=== PATIENT | female | born 1955 | race Caucasian/White ===

== ENCOUNTER → 2020-03-24 16:14 | Outpatient (CLI) | payer MEDICARE, OTHER, SELFPAY ==
--- NOTE | ~2020-03-24 | XR_ITS ---
XR chest 2V DATE: 03/24/2020 17:00 INDICATION: Persistent cough TECHNIQUE: PA and lateral views COMPARISON: 10/19/2016 two-view chest FINDINGS: Normal heart size. Aortic calcification and mild tortuosity. No hilar or mediastinal enlarg ement. The lungs are hyperinflated, clear of infiltrate or consolidation. No pleural effusion or pulmonary v ascular congestion or pneumothorax. Diffuse osteopenia. Degenerative change of the thoracic spine. Status post cholecystectomy. IMPRESSION: Bilateral hyperinflation suggesting obstructive airways disease No active cardiopulmonary disease Aortic atherosclerosis Diffuse osteopenia. Degenerative change of the thoracic spine. Reviewed, dictated and finalized at location A.
== END ==
PROVIDERS: PCP Family Medicine Adolescent Medicine; Visit Provider Family Medicine Adolescent Medicine
DX: R05 Cough (principal); R91.8 Other nonspecific abnormal finding of lung field; I70.0 Atherosclerosis of aorta; M85.88 Other specified disorders of bone density and structure, other site
CPT/HCPCS: 71046

== ENCOUNTER 2021-09-08 08:25 | Outpatient (CLI) | payer OTHER, SELFPAY ==
[2021-09-08 09:11] LABS: Hemoglobin A1C 6.7 % (<5.7)
[2021-09-08 09:34] LABS: Alanine Aminotransferase 26 U/L (4-35); Albumin Level 4.9 g/dL (3.5-5.1); Alkaline Phosphatase 88 U/L (38-126); Anion Gap 12 mmol/L (8-16); Aspartate Amino Transferase 33 U/L (14-36); Bilirubin,Total 0.5 mg/dL (0.2-1.3); Blood Urea Nitrogen 15 mg/dL (7-17); Calcium 9.5 mg/dL (8.4-10.2); Carbon Dioxide 23 mmol/L (22-30); Chloride 108 mmol/L (98-107); Cholesterol 264 mg/dL (0-200); Estimated Glomerular Filt Rate > 60; Glucose 165 mg/dL (65-110); HDL Direct 32 mg/dL; Potassium 4.6 mmol/L (3.4-5.0); Sodium 143 mmol/L (137-145); Triglycerides 358 mg/dL (<150)
[2021-09-08 09:44] LABS: LDL Cholesterol Direct 153 mg/dL
== END 2021-09-08 08:26 | disposition home or self-care (01) ==
LOC: ANHLAB 08:27
PROVIDERS: PCP Family Medicine Adolescent Medicine; Visit Provider Physician Assistant
DX: E11.9 Type 2 diabetes mellitus without complications (principal); Z13.220 Encounter for screening for lipoid disorders
CPT/HCPCS: 36415; 80053; 80061; 83036

== ENCOUNTER → 2021-10-29 09:58 | Outpatient (CLI) | payer OTHER, SELFPAY ==
--- NOTE | ~2021-10-29 | XR_ITS ---
EXAMINATION: XR lumbar spine 2-3V DATE: 10/29/2021 10:28 INDICATION: Bilateral lower limb weakness TECHNIQUE: Anteroposterior and lateral views of the lumbar spine, and cone-down lateral view of the l umbosacral junction were obtained. COMPARISON: None. FINDINGS: There is no fracture, dislocation, or subluxation. The vertebral body heights are normal. T here is mild loss of intervertebral disc space height throughout the lumbar spine. Small degenerative osteophytes project from the anterior endplates of multiple vertebral bodies. There is moderate face t osteoarthritis of the lower lumbar spine. Surgical clips in the right upper quadrant are likely fro m prior cholecystectomy. Calcified atherosclerosis is noted. IMPRESSION: 1. Mild lumbar spondylosis without acute findings. Reviewed, dictated and finalized at location A.
== END ==
PROVIDERS: Visit Provider Family Medicine Adolescent Medicine
DX: M47.896 Other spondylosis, lumbar region (principal)
CPT/HCPCS: 72100

== ENCOUNTER → 2021-11-16 07:29 | Outpatient (CLI) | payer OTHER, SELFPAY ==
--- NOTE | ~2021-11-16 | MR_ITS ---
EXAMINATION: MR lumbar spine wo con DATE: 11/16/2021 08:02 INDICATION: Other symptoms and signs involving the musculoskeletal system. TECHNIQUE: Magnetic resonance imaging (MRI) of the lumbar spine was performed without intravenous con trast. Sequences included sagittal T2-weighted FSE, sagittal T2-weighted FS FSE, sagittal T1-weighted FSE, and axial T2-weighted FSE. COMPARISON: Lumbar spine radiographs 10/29/2021 FINDINGS: There is 10 degrees dextroscoliosis of thoracolumbar spine. There is mild chronic anterior wedging of T11 and T12 vertebral bodies. Intervertebral disc heights are normal. The distal spinal co rd signal intensity is normal. The conus medullaris is at L1. The following disc levels are specifica lly discussed: L1-L2: The disc does not extend beyond the endplate margin. There is moderate bilateral facet joint o steoarthritis. There is no neural foraminal stenosis. There is no central canal stenosis. L2-L3: The disc is mildly bulging. There is severe right and moderate left facet joint osteoarthritis . There is mild bilateral neural foraminal stenosis. There is no central canal stenosis. L3-L4: The disc is mildly bulging. There is severe right and moderate left facet joint osteoarthritis . There is mild bilateral neural foraminal stenosis. There is no central canal stenosis. L4-L5: The disc is bulging. There is severe bilateral facet joint osteoarthritis. There is mild bilat eral neural foraminal stenosis. There is no central canal stenosis. L5-S1: The disc does not extend beyond the endplate margin. There is severe bilateral facet joint ost eoarthritis. There is mild bilateral neural foraminal stenosis. There is no central canal stenosis. IMPRESSION: 1. Mild lumbar spondylosis. 2. Thoracolumbar dextroscoliosis. Reviewed, dictated and finalized at location B.
== END ==
PROVIDERS: PCP Family Medicine Adolescent Medicine; Visit Provider Family Medicine Adolescent Medicine
DX: M47.817 Spondylosis without myelopathy or radiculopathy, lumbosacral region (principal); M48.07 Spinal stenosis, lumbosacral region; R29.898 Other symptoms and signs involving the musculoskeletal system; M41.9 Scoliosis, unspecified
CPT/HCPCS: 72148

== ENCOUNTER → 2021-11-17 09:26 | Outpatient (CLI) | payer OTHER, SELFPAY ==
--- NOTE | ~2021-11-17 | XR_ITS ---
EXAMINATION: XR chest 2V DATE: 11/17/2021 09:36 INDICATION: Chronic cough. TECHNIQUE: Frontal and lateral views of the chest were obtained. COMPARISON: Chest 2 views 03/24/2020 FINDINGS: There is mild scarring at the lung apices. There is a 2 cm nodule in left midlung zone. No pleural effusion or pneumothorax. The heart size is normal. IMPRESSION: 1. 2 cm nodule in left midlung zone suspicious for primary bronchogenic carcinoma. Noncontrast chest CT is recommended. Reviewed, dictated and finalized at location B. IMPRESSION: 1. 2 cm nodule in left midlung zone suspicious for primary bronchogenic carcin delvis. Noncontrast chest CT is recommended.
== END ==
PROVIDERS: PCP Family Medicine Adolescent Medicine; Visit Provider Family Medicine Adolescent Medicine
DX: R05.3 Chronic cough (principal); R91.1 Solitary pulmonary nodule
CPT/HCPCS: 71046

== ENCOUNTER → 2021-11-26 08:02 | Outpatient (CLI) | payer OTHER, SELFPAY ==
--- NOTE | ~2021-11-26 | CT_ITS ---
EXAMINATION: CT diagnostic chest wo con DATE: 11/26/2021 08:19 INDICATION: Solitary pulmonary nodule TECHNIQUE: Computed tomography (CT) of the chest was performed without intravenous contrast. The dose -length product (DLP) was 221.27 mGy-cm. Automated exposure control and iterative reconstruction tech nique were employed. COMPARISON: None FINDINGS: There is a 3.1 x 2.1 cm mass of the left upper lobe. There are pathologically enlarged left hilar, aorticopulmonary window, right paratracheal, and upper mediastinal lymph nodes. There are lo cified right hilar, subcarinal, and right lower paratracheal lymph nodes which likely reflect old gra nulomatous disease. The heart size is normal. There is calcified coronary artery atherosclerosis. No pleural effusion or pneumothorax is identified. There is moderate emphysema. There is mild thoracic s pondylosis. IMPRESSION: 1. Left upper lobe mass concerning for primary bronchogenic carcinoma. CT-guided biopsy is recommende d. 2. Mediastinal and left hilar lymphadenopathy, consistent with metastatic disease. Reviewed, dictated and finalized at location A. IMPRESSION: 1. Left upper lobe mass concerning for primary bronchogenic carcinoma. CT-guide d biopsy is recommended. 2. Mediastinal and left hilar lymphadenopathy, consistent with metastatic disea se.
== END ==
PROVIDERS: PCP Family Medicine Adolescent Medicine; Visit Provider Family Medicine Adolescent Medicine
DX: R91.1 Solitary pulmonary nodule (principal); M47.814 Spondylosis without myelopathy or radiculopathy, thoracic region
CPT/HCPCS: 71250

== ENCOUNTER 2021-12-15 08:25 | Outpatient (CLI) | payer OTHER, SELFPAY ==
[2021-12-15 09:20] LABS: LDL Cholesterol Direct 68 mg/dL
[2021-12-15 09:23] LABS: Cholesterol 156 mg/dL (0-200); HDL Direct 40 mg/dL; Triglycerides 164 mg/dL (<150)
[2021-12-15 09:33] LABS: Hemoglobin A1C 5.8 % (<5.7)
== END 2021-12-15 08:26 | disposition home or self-care (01) ==
PROVIDERS: PCP Family Medicine Adolescent Medicine; Referring Provider Nurse Practitioner Family; Visit Provider Family Medicine Adolescent Medicine
DX: J43.9 Emphysema, unspecified (principal); E11.42 Type 2 diabetes mellitus with diabetic polyneuropathy
CPT/HCPCS: 36415; 80061; 82104; 83036

== ENCOUNTER 2021-12-23 08:48 | Outpatient (CLI) | payer OTHER, SELFPAY ==
--- NOTE | ~2021-12-23 | PE_ITS ---
EXAMINATION: PET skull to mid thigh DATE: 12/23/2021 10:59 INDICATION: Other nonspecific abnormal finding in lung field. TECHNIQUE: Blood glucose level was 167 mg/dL. 10.654 mCi of 18-fluorodeoxyglucose (18-FDG) was admini stered i.v. Low dose computed tomography (CT) images were acquired from the base of the brain to the proximal thighs for attenuation correction and anatomic localization. Automated exposure control was employed. Dose-length product (DLP) was 427 mGy-cm. Positron emission tomography (PET) images were ac quired in the same distribution. COMPARISON: Chest CT 11/26/2021 FINDINGS: Head/neck: There is increased activity in the pharynx, oral cavity, glottis, and paraspinal muscles w ithout abnormal CT correlate, likely physiologic. There is a 16 x 11 mm right supraclavicular lymph n ode with maximum SUV of 5.6. Chest: There is moderate emphysema. There is mild scarring at the lung apices. There is mild scarring in paraspinal right lower lobe. There is a 21 mm nodule in left upper lobe with maximum SUV of 2.7. No pleural effusion. Calcified right hilar and mediastinal lymph nodes are consistent with old granul omatous disease. There is left hilar and mediastinal lymphadenopathy with increased activity. The hea rt size is normal. No pericardial effusion. There is increased activity in T2 vertebral body. Abdomen/pelvis/proximal thighs: The liver and spleen are normal. There are changes of cholecystectomy . The pancreas, adrenal glands, and kidneys are normal. There is diverticulosis of the colon without evidence of diverticulitis. There are no pathologically enlarged lymph nodes. There is no free intrap eritoneal fluid. There are scattered foci of increased activity in bone, some with abnormal CT correl ates, consistent with metastatic disease. There is increased activity in right ischial tuberosity, le ft femoral neck, the iliac bones, L5 vertebral body, and L3 vertebral body. IMPRESSION: 1. Left lung nodule with increased activity, consistent with primary bronchogenic carcinoma. 2. Left hilar, mediastinal, and bilateral supraclavicular lymphadenopathy and bone lesions with incre ased activity, consistent with metastatic disease. Ultrasound-guided core needle biopsy of a right bruno praclavicular lymph node is recommended. Reviewed, dictated and finalized at location A. IMPRESSION: 1. Left lung nodule with increased activity, consistent with primary bronchogen ic carcinoma. 2. Left hilar, mediastinal, and bilateral supraclavicular lymphadenopathy and b one lesions with increased activity, consistent with metastatic disease. Ultras ound-guided core needle biopsy of a right supraclavicular lymph node is recomme nded.
[2021-12-23 09:30] LABS: Glucose Point of Care 167 mg/dl (65-105)
== END 2021-12-23 08:49 | disposition home or self-care (01) ==
PROVIDERS: PCP Family Medicine Adolescent Medicine; Visit Provider Nurse Practitioner Family
DX: R91.8 Other nonspecific abnormal finding of lung field (principal)
CPT/HCPCS: 78815; A9552

== ENCOUNTER 2022-11-11 08:22 | Outpatient (CLI) | payer OTHER, SELFPAY ==
[2022-11-11 09:22] LABS: Cholesterol 162 mg/dL (0-200); HDL Direct 35 mg/dL; Triglycerides 223 mg/dL (<150)
[2022-11-11 09:30] LABS: Hemoglobin A1C 6.9 % (<5.7)
[2022-11-11 09:33] LABS: LDL Cholesterol Direct 86 mg/dL
== END 2022-11-11 08:23 | disposition home or self-care (01) ==
LOC: ANHLAB 08:24
PROVIDERS: PCP Family Medicine Adolescent Medicine; Referring Provider Nurse Practitioner Family; Visit Provider Physician Assistant
DX: E11.42 Type 2 diabetes mellitus with diabetic polyneuropathy (principal); E78.2 Mixed hyperlipidemia; N39.0 Urinary tract infection, site not specified
CPT/HCPCS: 36415; 80061; 83036; 87077; 87086; 87186

== ENCOUNTER 2023-11-30 08:27 | Outpatient (CLI) | payer OTHER, SELFPAY ==
[2023-11-30 09:32] LABS: Alanine Aminotransferase 17 U/L (6-35); Albumin Level 4.9 g/dL (3.5-5.1); Alkaline Phosphatase 126 U/L (38-126); Anion Gap 10 mmol/L (4-12); Aspartate Amino Transferase 25 U/L (14-36); Bilirubin,Total 0.7 mg/dL (0.2-1.3); Blood Urea Nitrogen 12 mg/dL (7-17); Calcium 9.8 mg/dL (8.4-10.2); Carbon Dioxide 25 mmol/L (22-30); Chloride 105 mmol/L (98-107); Cholesterol 172 mg/dL (0-200); Estimated Glomerular Filt Rate > 60; Glucose 141 mg/dL (65-110); HDL Direct 36 mg/dL; Potassium 3.7 mmol/L (3.4-5.0); Sodium 140 mmol/L (137-145); Triglycerides 229 mg/dL (<150)
[2023-11-30 09:51] LABS: LDL Cholesterol Direct 95 mg/dL
[2023-11-30 09:58] LABS: Hemoglobin A1C 6.2 % (<5.7)
== END 2023-11-30 08:28 | disposition home or self-care (01) ==
PROVIDERS: PCP Family Medicine Adolescent Medicine; Visit Provider Nurse Practitioner Family
DX: E78.2 Mixed hyperlipidemia (principal); E11.42 Type 2 diabetes mellitus with diabetic polyneuropathy; I70.0 Atherosclerosis of aorta
CPT/HCPCS: 36415; 80053; 80061; 83036